=== PATIENT | male | born 1990 | race Caucasian/White ===

== ENCOUNTER 2018-03-02 02:49 | Emergency (ER) | payer SELFPAY ==
[2018-03-02 02:56] VITALS: BP 127/76; PULSE 71; BMI 36.6
--- NOTE | 2018-03-02 02:58 | PDOC ---
History of Present Illness - General Chief Complaint: Pain, Acute Stated Complaint: PAINFUL LUMP TO LEFT SIDE OF HEAD Time Seen by Provider: 03/02/18 02:51 History Source: Patient Exam Limitations: No Limitations - History of Present Illness Initial Comments: 03/02/18 02:55 This is a 28-year-old male brought in by his mother for evaluation of a lump on his neck, just behind the ear on the left side. Patient noticed that he all of a sudden had a area on the side of his neck that was painful and was concerned that it could be something more serious. Patient denies any fevers or chills. Patient denies any ear pain, teeth pain sore throat or any other complaints. Patient denies any neck pain. PAST MEDICAL HISTORY: no significant history PAST SURGICAL HISTORY: no significant history FAMILY HISTORY: no pertinant history SOCIAL HISTORY: Pt lives with family and is employed. MEDICATIONS: reviewed ALLERGIES: As per nursing notes Review of Systems General: No fevers or chills, no weakness, no weight loss HEENT: No change in vision. No sore throat,. No ear pain, painful behind ear CardioVascular: No chest pain or shortness of breath Respiratory:No cough, or wheezing. Gastrointestinal: no nausea, vomitting, diarrhea or constipation, No rectal bleeding Genitourinary: No dysuria, hematuria, or frequency Musculoskeletal: No joint or muscle pain or swelling Neurologic: No headache, vertigo, dizziness or loss of consciousness Psychiatric: nor depression Skin: No rashes or easy bruising Endocrine: no increased thirst or abnormal weight change Allergic: no skin or latex allergy All other systems reviewed and normal GENERAL: The patient is awake, alert, and fully oriented, in no acute distress. HEAD: Normal with no signs of trauma. There is a small tender lymph node in the posterior radicular area. It is freely mobile. EARS: Tympanic membranes are normal bilateral no evidence of infection THROAT: There is no erythema of the posterior oropharynx there is no lymphadenopathy of the neck bilateral EYES: Pupils equal, round and reactive to light, extraocular movements intact, sclera anicteric, conjunctiva clear. EXTREMITIES: Normal range of motion, no edema. NEUROLOGICAL: Normal speech, normal gait. grossly intact PSYCH: Normal mood, normal affect. SKIN: Warm, Dry, normal turgor, no rashes or lesions noted. Assessment and plan: This is a 28-year-old male with a posterior auricular reactive lymph node. Patient was reassured that it most likely will resolve on its own within the next days to week. Patient was told to get an appointment for 2 weeks from now and have her reevaluated if it was still present. Past History - Past Medical History Allergies/Adverse Reactions: Allergies Allergy/AdvReac Type Severity Reaction Status Date / Time No Known Allergies Allergy Verified 03/02/18 02:51 Home Medications: Ambulatory Orders NK [No Known Home Medication] 03/02/18 - Suicide/Smoking/Psychosocial Hx Smoking Status: No Smoking History: Never smoked Number of Cigarettes Smoked Daily: 0 *DC/Admit/Observation/Transfer Diagnosis at time of Disposition: Lymphadenopathy - Discharge Dispostion Disposition: HOME Condition at time of disposition: Stable Decision to Admit order: No - Referrals - Patient Instructions Additional Instructions: Take Tylenol or Motrin if needed for discomfort. The swollen lymph node should resolve on its own over the next days to a week or so. However it has not resolved within 2 weeks it should be reevaluated by your primary care doctor. Return to the emergency department immediately with ANY new, persistent or worsening symptoms. Continue any medications as previously prescribed by your physician. You should follow up with your primary doctor as soon as possible regarding today's emergency department visit. . Please make sure your doctor reviews the results of your emergency evaluation. Thank you for coming to the Emergency Department today for your care. It was a pleasure to see you today. Please note that your evaluation is INCOMPLETE until you follow-up with your doctor. - Post Discharge Activity
== END 2018-03-02 03:04 | disposition home or self-care (01) ==
LOC: FER 02:49
DX: R59.1 Generalized enlarged lymph nodes (principal)
CPT/HCPCS: 99281-25

== ENCOUNTER 2020-10-14 12:18 | Emergency (ER) | payer OTHER | END 2020-10-14 12:51 | disposition home or self-care (01) | LOC: JVIRT 12:18 | DX: Z11.52 Encounter for screening for COVID-19 (principal) | CPT/HCPCS: C9803; G2251-GT; Q3014-GT; U0003 ==